=== PATIENT | male | born 1960 | race African-American/Black ===

== ENCOUNTER 2018-04-18 17:11 | Observation (INO) | payer BC, OTHER ==
[2018-04-18 17:27] VITALS: BMI 27.3
[2018-04-18] MEDS ORDERED: MECLIZINE HCL 25 MG TABLET (FP) PO ONE (20:29)
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
[2018-04-18 22:11] LABS: BASO % 0.9 % (0-2.0); EOS % 4.6 % (0-4.5); HEMATOCRIT 42.4 % (35.4-49); HEMOGLOBIN 14.8 GM/dL (11.7-16.9); LYMPH % 18.7 % (8-40); MCH 32.1 pg (25.7-33.7); MCHC 34.8 g/dl (32.0-35.9); MEAN CELL VOLUME 92.3 fl (80-96); MEAN PLT VOLUME 8.7 fl (7.5-11.1); MONO % 8.1 % (3.8-10.2); NEUT % 67.7 % (42.8-82.8); PLATELET COUNT 295 K/MM3 (134-434); RBC 4.59 M/mm3 (4.00-5.60); RDW 13.5 % (11.9-15.9); WHITE BLOOD COUNT 8.5 K/mm3 (4.0-10.0)
[2018-04-18 22:36] LABS: INR 1.1 (0.83-1.09)
[2018-04-18 22:42] LABS: ALBUMIN 3.5 g/dl (3.4-5.0); ALK PHOS 128 U/L (45-117); ANION GAP 6 MMOL/L (8-16); BILIRUBIN,TOTAL 0.2 mg/dL (0.2-1); BLOOD UREA NITROGEN 16 mg/dL (7-18); CALCIUM 8.7 mg/dL (8.5-10.1); CHLORIDE 103 mmol/L (98-107); CO2 28 mmol/L (21-32); CREATININE 0.9 mg/dL (0.55-1.3); GLUCOSE,RANDOM 136 mg/dL (74-106); MAGNESIUM 2.2 mg/dL (1.8-2.4); POTASSIUM 3.8 mmol/L (3.5-5.1); SGOT/AST 19 U/L (15-37); SGPT/ALT 27 U/L (13-61); SODIUM 137 mmol/L (136-145); TOT PROT 6.8 g/dl (6.4-8.2)
[2018-04-18] MEDS ORDERED: MECLIZINE HCL 25 MG TABLET (FP) ONE ×2 (22:46→22:50)
[2018-04-18] MEDS ORDERED: ACETAMINOPHEN 325 MG TABLET (FP) ONE (23:48)
[2018-04-18] MEDS ORDERED: ACETAMINOPHEN 500 MG TABLET (FP) PO ONE (23:48)
[2018-04-19] MEDS ORDERED: MECLIZINE HCL 12.5 MG TABLET PO PRN (00:52)
--- NOTE | 2018-04-19 01:27 | HP ---
CHIEF COMPLAINT: Vertigo PCP: None HISTORY OF PRESENT ILLNESS: 58yo M with only history of CAD s/p PCI x6 who presents today for vertigo. He states that he woke up 2 days prior with vertigo and became increasingly dizzy with movements. Pt reports increasing his fluid intake and taking OTC medications without any pattern of symptom relief. Pt reports the vertigo lasts about 15 minutes will be intermittent throughout the day. Denies any headache, chest pain, neck pain, shortness of breath, palpitations, abdominal pain, n/v/d/ c. Pt was given Meclizine in the ED with minimal relief. Denies any constitutional symptoms or prior illness. Denies sick contacts Recent Travel: PAST MEDICAL HISTORY: CAD s/p PCI PAST SURGICAL HISTORY: PCI Social History: Smoking: Denies Alcohol: Denies Drugs: Denies Allergies No Known Allergies Allergy (Verified 11/05/14 12:59) HOME MEDICATIONS: Home Medications Medication Instructions Recorded Amlodipine Besylate [Norvasc -] 10 mg PO DAILY #15 tablet 11/05/14 Atorvastatin Ca [Lipitor] 40 mg PO HS #15 tablet 11/05/14 Meclizine HCl [Antivert -] 50 mg PO TID #18 tablet 11/05/14 Metoprolol Tartrate 50 mg PO BID #30 tablet 11/05/14 REVIEW OF SYSTEMS As per HPI PHYSICAL EXAMINATION Vital Signs - 24 hr 04/18/18 17:24 Temperature 97.7 F Pulse Rate 81 Respiratory 16 Rate Blood Pressure 138/85 O2 Sat by Pulse 100 Oximetry (%) VS: Orthostatics negative GENERAL: NAD, Awake, alert, and fully oriented HEENT: NC/AT, EOMI, ALESSIO, no nystagmus, sclera anicteric, MMM, no auricular abnormalities NECK: Soft, structurally intact, no JVD, normal ROM LUNGS: CTA bilaterally. No wheezes, and no crackles. No accessory muscle use. HEART: RRR normal S1 and S2 without murmur ABDOMEN: Soft, NT/ND, normoactive bowel sounds, no guarding MUSCULOSKELETAL: No CVA tenderness. EXTREMITIES: 2+ distal pulses, warm, well-perfused. No peripheral edema. NEUROLOGICAL: composite mechanic II-XII intact. Normal speech. Normal gait. Strength 5/5 in all motor talbert. Sensation intact throughout. Babinski downgoing. Reflexes 2/4 in biceps and patellar regions. PSYCHIATRIC: Cooperative. Good eye contact. Appropriate mood and affect. SKIN: Warm, no rashes or lesions noted Laboratory Results - last 24 hr 04/18/18 04/18/18 04/18/18 22:00 22:00 22:00 WBC 8.5 RBC 4.59 Hgb 14.8 Hct 42.4 MCV 92.3 MCH 32.1 MCHC 34.8 RDW 13.5 Plt Count 295 D MPV 8.7 Absolute Neuts (auto) 5.8 Neutrophils % 67.7 D Lymphocytes % 18.7 D Monocytes % 8.1 Eosinophils % 4.6 H Basophils % 0.9 Nucleated RBC % 0 PT with INR 13.00 INR 1.10 H Sodium 137 Potassium 3.8 Chloride 103 Carbon Dioxide 28 Anion Gap 6 L BUN 16 Creatinine 0.9 Creat Clearance w eGFR > 60 Random Glucose 136 H Calcium 8.7 Magnesium 2.2 Total Bilirubin 0.2 AST 19 ALT 27 Alkaline Phosphatase 128 H Creatine Kinase 107 Troponin I < 0.02 Total Protein 6.8 Albumin 3.5 ASSESSMENT/PLAN: Vertigo CAD s/p PCI x6 --[place]-hallpike negative --Improving on Meclizine --Orthostatics negative --ECG w/o abnormality --MRI ordered to r/o any possible central etiology --If w/o acute process can leave in AM --Fall precautions --Echo --Neuro consult --Rpt cardiac profile to increase NPV for ACS FEN: Fluids: Not indicated Electrolytes: WNL Nutrition: Cholesterol/fat controlled PPX: DVT - early ambulation Dispo: Place in observation; likely d/c in AM with tabs of Meclizine Discussed with Dr. Katerine Cooley, DO - IM PGY-2 Visit type - Emergency Visit Emergency Visit: Yes ED Registration Date: 04/19/18 Care time: The patient presented to the Emergency Department on the above date and was hospitalized for further evaluation of their emergent condition. - New Patient This patient is new to me today: Yes Date on this admission: 04/19/18 - Critical Care Critical Care patient: No
--- NOTE | 2018-04-19 03:35 | PN ---
Teaching Attending Note Name of Resident: Juan Cooley ATTENDING PHYSICIAN STATEMENT I saw and evaluated the patient. I reviewed the resident's note and discussed the case with the resident. I agree with the resident's findings and plan as documented. SUBJECTIVE: Patient is a 58-year-old man with past medical history of CAD, and [place] (with 6 stents) who presents to the ER with dizziness for the past 2 days. Patient reports woke up yesterday morning and when he sat up he became increasingly dizzy. He states he increased his fluid intake and tried [id number] medications and remedies without any change in symptoms. Patient reports his dizziness gets worse with any change position notably from sitting up to lying down. Patient states he does have left lateral neck pain but denies any chiropractic or massage therapies. He denies any chest pain, shortness of breath , blurry vision, abdominal pain, nausea, vomiting or diaphoresis. He got a dose of meclizine in the ER and says he felt a little better. OBJECTIVE: Alert and not orthostatic Vital Signs Period Temp Pulse Resp BP Sys/Serrano Pulse Ox Last 24 Hr 97.7 F 81 16 138/85 100 HEENT: No Jaundice, eye redness or discharge, PERRLA, EOMI. Normocephalic, atraumatic. External ears are normal and hearing is grossly intact. No nasal discharge. Neck: Supple, nontender. No palpable adenopathy or thyromegaly. No JVD Chest: Good effort. Clear to auscultation and percussion. Heart: Regular. No S3, rub or murmur Abdomen: Not distended, soft, nontender and no HSM. No rebound or guarding. Normoactive bowel sounds. Ext: Peripheral pulses intact. No leg edema. Skin: Warm and dry. No petechiae, rash or ecchymosis. Neuro: Alert. Oriented x3. CN 2-12 grossly intact. Sensation grossly intact in all four extremities and DTR are symmetric. Current Medications Generic Name Dose Route Start Last Admin Trade Name Freq PRN Reason Stop Dose Admin Amlodipine Besylate 10 mg 04/19/18 10:00 Norvasc - PO DAILY SUSI Atorvastatin Calcium 40 mg 04/19/18 22:00 Lipitor - PO HS SUSI Meclizine HCl 12.5 mg 04/19/18 00:52 Antivert - PO Q6H PRN VERTIGO Metoprolol Tartrate 50 mg 04/19/18 10:00 Lopressor - PO BID SUSI Home Medications Medication Instructions Recorded Amlodipine Besylate [Norvasc -] 10 mg PO DAILY #15 tablet 11/05/14 Atorvastatin Ca [Lipitor] 40 mg PO HS #15 tablet 11/05/14 Meclizine HCl [Antivert -] 50 mg PO TID #18 tablet 11/05/14 Metoprolol Tartrate 50 mg PO BID #30 tablet 11/05/14 Abnormal Lab Results 04/18/18 04/18/18 04/18/18 22:00 22:00 22:00 Eosinophils % 4.6 H INR 1.10 H Anion Gap 6 L Random Glucose 136 H Alkaline Phosphatase 128 H ASSESSMENT AND PLAN: 1. Dizziness - Cause unclear. Will admit to telemetry, implement fall precautions and get carotid doppler, ECHO and brain MRI. Urged to make sure he is well hydrated. Check HbA1c. Consult neurology. 2. DVT prophylaxis - Lovenox 40 mg SQ q 24 hours. 3. Advance directives - Full code
[2018-04-19 03:56] LABS: URINE APPEARANCE CLEAR; URINE BILIRUBIN NEGATIVE (<2.0 mg/dL); URINE COLOR STRAW; URINE GLUCOSE (UA) NEGATIVE (NEGATIVE); URINE KETONE NEGATIVE (NEGATIVE); URINE LEUK ESTERASE NEGATIVE (NEGATIVE); URINE NITRITE NEGATIVE (NEGATIVE); URINE PROTEIN NEGATIVE (NEGATIVE); URINE UROBILINOGEN NEGATIVE mg/dL (0.2-1.0)
--- NOTE | 2018-04-19 10:01 | ECHO ---
Name: NURIS THIBODEAUX Exam:Adult Echocardiogram Study Date: 04/19/2018 07:57 AM Age: 58 yrs Reason For Study: LV Function Height: 67 in Weight: 175 lb BSA: 1.9 m2 MMode/2D Measurements & Calculations IVSd: 0.98 cm Ao root diam: 2.9 cm LVIDd: 3.9 cm LA dimension: 3.3 cm LVIDs: 2.2 cm LVPWd: 1.0 cm EDV(Teich): 66.4 ml LAV (MOD-bp): 37.5 ml ESV(Teich): 16.0 ml Doppler Measurements & Calculations MV E max tal: 87.3 cm/sec TR max tal: 223.5 cm/sec MV A max tal: 97.5 cm/sec TR max P.0 mmHg MV E/A: 0.90 MV dec time: 0.20 sec Med Peak E' Tal: 4.7 cm/sec PI Vmax: 137.1 cm/sec Med E/e': 18.7 Lat Peak E' Tal: 10.2 cm/sec Lat E/e': 8.5 Left Ventricle Left ventricular systolic function is normal. Ejection Fraction = 55-60%. The transmitral spectral Do ppler flow pattern is suggestive of impaired LV relaxation. Right Ventricle The right ventricle is normal in size and function. Atria Normal left and right atrial size and function. Mitral Valve The mitral valve is normal in structure and function. There is no mitral valve stenosis. There is mil d mitral regurgitation. Tricuspid Valve The tricuspid valve is normal in structure and function. There is mild tricuspid regurgitation. Aortic Valve The aortic valve opens well. No hemodynamically significant valvular aortic stenosis. Pulmonic Valve The pulmonic valve is not well seen, but is grossly normal. There is no pulmonic valvular stenosis. M ild pulmonic valvular regurgitation. Great Vessels The aortic root is normal size. Pericardium/Pleura There is no pericardial effusion. Interpretation Summary Left ventricular systolic function is normal. The transmitral spectral Doppler flow pattern is suggestive of impaired LV relaxation. Ejection Fraction = 55-60%. The right ventricle is normal in size and function. There is mild mitral regurgitation. There is mild tricuspid regurgitation. There is no pericardial effusion. MD Obrien *Yusuf 04/19/2018 10:00 AM
[2018-04-19] MEDS: METOPROLOL TARTRATE 50 MG TABLET (FP) PO SCH ×2 (10:04→21:29)
[2018-04-19] MEDS: amLODIPine BESYLATE 10 MG TABLET (FP) PO SCH (10:04)
--- NOTE | 2018-04-19 11:25 | EKG ---
Test Reason : Blood Pressure : / mmHG Vent. Rate : 068 BPM Atrial Rate : 068 BPM P-R Int : 190 ms QRS Dur : 088 ms QT Int : 374 ms P-R-T Axes : 049 000 -10 degrees QTc Int : 397 ms NORMAL SINUS RHYTHM INFERIOR INFARCT (CITED ON OR BEFORE 05-NOV-2014) ABNORMAL ECG WHEN COMPARED WITH ECG OF 05-NOV-2014 16:38, NONSPECIFIC T WAVE ABNORMALITY NOW EVIDENT IN ANTERIOR LEADS Confirmed by JUNO WHITE, RONY ([id number]) on 04/19/2018 11:24:54 AM Referred By: Confirmed By:RONY FRAIRE MD
[2018-04-19] MEDS ORDERED: LORazepam 2 MG/ML SDV VIAL IVPUSH ONE (14:45)
--- NOTE | 2018-04-19 14:59 | PN ---
Teaching Attending Note Name of Resident: Chet Cortez ATTENDING PHYSICIAN STATEMENT I saw and evaluated the patient. I reviewed the resident's note and discussed the case with the resident. I agree with the resident's findings and plan as documented with exceptions below. SUBJECTIVE: patient seen and examined. Symptoms improved. left neck pain, worse with movements. Reports woke up 2 days ago with left neck pain worse with movements associated with spinning sensation. Dizziness/vertigo has improved, however neck symptoms persist. URI like illness 2 weeks ago. OBJECTIVE: Vital Signs Period Temp Pulse Resp BP Sys/Serrano Pulse Ox Last 24 Hr 97.6 F-98.0 F 62-81 16-18 131-140/78-87 97-100 Intake & Output 04/16/18 04/17/18 04/18/18 04/19/18 23:59 23:59 23:59 23:59 Weight 175 lb General; sitting in bed in no acute distress Neck: left neck tenderness along sternomastoid muscle, pain with lateral neck movements. no spinal tenderness Neuro: AAOX3, no nystagmus, finger nose test WNL, power 5/5 sensation intact to light touch, no pronator drift, cranial nerves II-XII intact, gait normal Abdomen:Soft, NT Extremities: no edema Chest: CTAB, no rales or wheezing Home Medications Medication Instructions Recorded Amlodipine Besylate [Norvasc -] 10 mg PO DAILY #15 tablet 11/05/14 Atorvastatin Ca [Lipitor] 40 mg PO HS #15 tablet 11/05/14 Meclizine HCl [Antivert -] 50 mg PO TID #18 tablet 11/05/14 Metoprolol Tartrate 50 mg PO BID #30 tablet 11/05/14 Aspirin 81 mg PO DAILY 04/19/18 Clopidogrel Bisulfate [Plavix] 75 mg PO DAILY 04/19/18 Metoprolol Succinate 25 mg PO DAILY 04/19/18 Active Medications Acetaminophen (Tylenol -) 650 mg PO Q6H PRN PRN Reason: PAIN 1-3 Amlodipine Besylate (Norvasc -) 10 mg PO DAILY SUSI Last Admin: 04/19/18 10:04 Dose: 10 mg Aspirin (Asa -) 81 mg PO DAILY [facility] Atorvastatin Calcium (Lipitor -) 40 mg PO HS [facility] Clopidogrel Bisulfate (Plavix -) 75 mg PO DAILY [facility] Meclizine HCl (Antivert -) 25 mg PO TID [facility] Methyl Salicylate (Adam-Us -) 1 applic TP BID [facility] Metoprolol Tartrate (Lopressor -) 50 mg PO BID [facility] Last Admin: 04/19/18 10:04 Dose: 50 mg Laboratory Results - last 24 hr 04/18/18 04/18/18 04/18/18 22:00 22:00 22:00 WBC 8.5 RBC 4.59 Hgb 14.8 Hct 42.4 MCV 92.3 MCH 32.1 MCHC 34.8 RDW 13.5 Plt Count 295 D MPV 8.7 Absolute Neuts (auto) 5.8 Neutrophils % 67.7 D Lymphocytes % 18.7 D Monocytes % 8.1 Eosinophils % 4.6 H Basophils % 0.9 Nucleated RBC % 0 PT with INR 13.00 INR 1.10 H Sodium 137 Potassium 3.8 Chloride 103 Carbon Dioxide 28 Anion Gap 6 L BUN 16 Creatinine 0.9 Creat Clearance w eGFR > 60 Random Glucose 136 H Calcium 8.7 Magnesium 2.2 Total Bilirubin 0.2 AST 19 ALT 27 Alkaline Phosphatase 128 H Creatine Kinase 107 Troponin I < 0.02 Total Protein 6.8 Albumin 3.5 Urine Color Urine Appearance Urine pH Ur Specific [place] Urine Protein Urine Glucose (UA) Urine Ketones Urine Blood Urine Nitrite Urine Bilirubin Urine Urobilinogen Ur Leukocyte Esterase 04/19/18 04/19/18 00:23 03:05 WBC RBC Hgb Hct MCV MCH MCHC RDW Plt Count MPV Absolute Neuts (auto) Neutrophils % Lymphocytes % Monocytes % Eosinophils % Basophils % Nucleated RBC % PT with INR INR Sodium Potassium Chloride Carbon Dioxide Anion Gap BUN Creatinine Creat Clearance w eGFR Random Glucose Calcium Magnesium Total Bilirubin AST ALT Alkaline Phosphatase Creatine Kinase 90 Troponin I < 0.02 Total Protein Albumin Urine Color Straw Urine Appearance Clear Urine pH 7.0 Ur Specific [place] 1.011 Urine Protein Negative Urine Glucose (UA) Negative Urine Ketones Negative Urine Blood Negative Urine Nitrite Negative Urine Bilirubin Negative Urine Urobilinogen Negative Ur Leukocyte Esterase Negative CT brain/CTA neck noted. 2D echo results reviewed ASSESSMENT AND PLAN: 58 yom with PMHx of CAD s/p PCI x6 admitted with left neck pain and vertigo/ dizziness. -Vertigo/dizziness, suspect BPPV in the setting of recent URI, low suspicion for posterior cerebellar event -Left neck pain, suspect musculoskeletal. CTA neg for vertebral artery dissection -HTN -HLD -CAD s/p PCI x 6 Plan: Place on standng meclizine. CT brain/Neck CTA noted. Bengay/tylenol for left neck pain. Vestibular PT. MRI brain given high risk, and improved but ongoing symptoms. Resume ASA/plavix/Continue statin/metoprolol/amlodipine. DVTPPX if > 24-48 hours hospital stay anticipated D/c in 24 hours if w/u unrevealing and clinically improved. Plan discussed with patient in detail, all questions answered.
[2018-04-19] MEDS ORDERED: CLOPIDOGREL BISULFATE 75 MG TABLET (FP) ONE (15:02)
[2018-04-19] MEDS ORDERED: ASPIRIN 81 MG CHEWABLE TABLETS ONE (15:02)
[2018-04-19] MEDS: CLOPIDOGREL BISULFATE 75 MG TABLET (FP) PO SCH (15:05)
[2018-04-19] MEDS: ASPIRIN 81 MG CHEWABLE TABLETS PO SCH (15:05)
[2018-04-19] MEDS ORDERED: ACETAMINOPHEN 325 MG TABLET (FP) ONE (17:40)
[2018-04-19] MEDS: ACETAMINOPHEN 325 MG TABLET (FP) PO PRN (17:40)
[2018-04-19] MEDS ORDERED: MECLIZINE HCL 25 MG TABLET (FP) ONE (17:42)
[2018-04-19] MEDS: MECLIZINE HCL 25 MG TABLET (FP) PO SCH ×2 (17:43→21:29)
[2018-04-19] MEDS ORDERED: LORazepam 2 MG/ML SDV VIAL ONE (18:08)
--- NOTE | 2018-04-19 19:59 | PN ---
Physical Exam: SUBJECTIVE: Patient seen and examined at bedside this morning. Admits improvement of dizziness, however complains of left sided neck pain with passive and active movement. Unable to provide inciting factors for dizziness, states it occurred as he woke up, getting up from bed Sunday morning. Endorses that he had URI that resolved approx. two weeks ago. Currenly denies, fevers, chills, shortness of breath, OBJECTIVE: Vital Signs Period Temp Pulse Resp BP Sys/Serrano Pulse Ox Last 24 Hr 97.6 F-98.2 F 62-80 17-18 124-140/78-87 97-100 GENERAL: The patient is awake, alert, and fully oriented, in no acute distress. HEAD: Normal with no signs of trauma. Passive and active range of motion limited due to neck pain. EYES: PERRL, extraocular movements intact, sclera anicteric, conjunctiva clear. No ptosis. ENT: Ears normal, nares patent, oropharynx clear without exudates, moist mucous membranes. NECK: Trachea midline, full range of motion, supple. LUNGS: Breath sounds equal, clear to auscultation bilaterally, no wheezes, no crackles, no accessory muscle use. HEART: Regular rate and rhythm, S1, S2 without murmur, rub or gallop. ABDOMEN: Soft, nontender, nondistended, normoactive bowel sounds, no guarding, no rebound, no hepatosplenomegaly, no masses. EXTREMITIES: 2+ pulses, warm, well-perfused, no edema. NEUROLOGICAL: Cranial nerves II through XII grossly intact. Normal speech. Strength 5/5 b/l upper and lower extremities. No gross focal deficits. PSYCH: Normal mood, normal affect. SKIN: Warm, dry, normal turgor, no rashes or lesions noted Laboratory Results - last 24 hr 04/18/18 04/18/18 04/18/18 22:00 22:00 22:00 WBC 8.5 RBC 4.59 Hgb 14.8 Hct 42.4 MCV 92.3 MCH 32.1 MCHC 34.8 RDW 13.5 Plt Count 295 D MPV 8.7 Absolute Neuts (auto) 5.8 Neutrophils % 67.7 D Lymphocytes % 18.7 D Monocytes % 8.1 Eosinophils % 4.6 H Basophils % 0.9 Nucleated RBC % 0 PT with INR 13.00 INR 1.10 H Sodium 137 Potassium 3.8 Chloride 103 Carbon Dioxide 28 Anion Gap 6 L BUN 16 Creatinine 0.9 Creat Clearance w eGFR > 60 Random Glucose 136 H Calcium 8.7 Magnesium 2.2 Total Bilirubin 0.2 AST 19 ALT 27 Alkaline Phosphatase 128 H Creatine Kinase 107 Troponin I < 0.02 Total Protein 6.8 Albumin 3.5 Urine Color Urine Appearance Urine pH Ur Specific [place] Urine Protein Urine Glucose (UA) Urine Ketones Urine Blood Urine Nitrite Urine Bilirubin Urine Urobilinogen Ur Leukocyte Esterase 04/19/18 04/19/18 00:23 03:05 WBC RBC Hgb Hct MCV MCH MCHC RDW Plt Count MPV Absolute Neuts (auto) Neutrophils % Lymphocytes % Monocytes % Eosinophils % Basophils % Nucleated RBC % PT with INR INR Sodium Potassium Chloride Carbon Dioxide Anion Gap BUN Creatinine Creat Clearance w eGFR Random Glucose Calcium Magnesium Total Bilirubin AST ALT Alkaline Phosphatase Creatine Kinase 90 Troponin I < 0.02 Total Protein Albumin Urine Color Straw Urine Appearance Clear Urine pH 7.0 Ur Specific [place] 1.011 Urine Protein Negative Urine Glucose (UA) Negative Urine Ketones Negative Urine Blood Negative Urine Nitrite Negative Urine Bilirubin Negative Urine Urobilinogen Negative Ur Leukocyte Esterase Negative Active Medications Generic Name Dose Route Start Last Admin Trade Name Freq PRN Reason Stop Dose Admin Acetaminophen 650 mg 04/19/18 14:58 04/19/18 17:40 Tylenol - PO 650 mg Q6H PRN Administration PAIN 1-3 Amlodipine Besylate 10 mg 04/19/18 10:00 04/19/18 10:04 Norvasc - PO 10 mg DAILY SUSI Administration Aspirin 81 mg 04/19/18 13:15 04/19/18 15:05 Asa - PO 81 mg DAILY SUSI Administration Atorvastatin Calcium 40 mg 04/19/18 22:00 Lipitor - PO HS SUSI Clopidogrel Bisulfate 75 mg 04/19/18 13:15 04/19/18 15:05 Plavix - PO 75 mg DAILY SUSI Administration Meclizine HCl 25 mg 04/19/18 15:00 04/19/18 17:43 Antivert - PO 25 mg TID SUSI Administration Methyl Salicylate 1 applic 04/19/18 22:00 Adam-Us - TP BID SUSI Metoprolol Tartrate 50 mg 04/19/18 10:00 04/19/18 10:04 Lopressor - PO 50 mg BID SUSI Administration ASSESSMENT/PLAN: Patient is 58 year old male with history of prior MT s/p 6 cardiac stents, hypertension, hyperlipdemia, presenting with complaint of dizziness, and neck pain. Dizziness -May be secondary to BPPV -Meclizine 25mg PO TID -BenGay cream to neck BID -Tylenol 650mg PO Q6H for pain -F/U brain MRI -F/U CTA neck Coronary artery disease -S/P 6 stents -Aspirin 81mg PO daily -Plavix 75mg PO daily Hypertension -Metoprolol 50mg PO BID -Norvasc 10mg PO daily Hyperlipidemia -Lipitor 40mg PO QHS FEN -No IV fluids indicated -follow CMP -Cholesterol fat controlled diet Prophylaxis -Early ambulation Disposition -Likely discharge tomorrow, pending read MRI, CTA neck Visit type - Emergency Visit Emergency Visit: Yes ED Registration Date: 04/19/18 Care time: The patient presented to the Emergency Department on the above date and was hospitalized for further evaluation of their emergent condition. - New Patient This patient is new to me today: Yes Date on this admission: 04/19/18 - Critical Care Critical Care patient: No - Discharge Referral Referred to [facility] Med P.C.: No
[2018-04-19] MEDS ORDERED: PT OWN MED DRAWER 7, Y5N ONE (21:03)
[2018-04-19] MEDS: METHYL SALICYLATE/MENTHOL OINT 30 GM TUBE TP SCH (21:30)
[2018-04-19] MEDS ORDERED: ATORVASTATIN CA 40 MG TABLET (FP) PO SCH (22:00)
[2018-04-20] MEDS: MECLIZINE HCL 25 MG TABLET (FP) PO SCH (06:22)
[2018-04-20 08:01] LABS: HEMATOCRIT 44.3 % (35.4-49); HEMOGLOBIN 14.7 GM/dL (11.7-16.9); MCH 30.9 pg (25.7-33.7); MCHC 33.1 g/dl (32.0-35.9); MEAN CELL VOLUME 93.2 fl (80-96); MEAN PLT VOLUME 8.5 fl (7.5-11.1); PLATELET COUNT 303 K/MM3 (134-434); RBC 4.75 M/mm3 (4.00-5.60); RDW 13.5 % (11.9-15.9); WHITE BLOOD COUNT 7.8 K/mm3 (4.0-10.0)
[2018-04-20 08:45] LABS: ALBUMIN 3.5 g/dl (3.4-5.0); ALK PHOS 133 U/L (45-117); ANION GAP 9 MMOL/L (8-16); BILIRUBIN,TOTAL 0.8 mg/dL (0.2-1); BLOOD UREA NITROGEN 13 mg/dL (7-18); CHLORIDE 102 mmol/L (98-107); CO2 26 mmol/L (21-32); CREATININE 0.9 mg/dL (0.55-1.3); GLUCOSE,RANDOM 81 mg/dL (74-106); POTASSIUM 4.1 mmol/L (3.5-5.1); SGOT/AST 21 U/L (15-37); SGPT/ALT 27 U/L (13-61); SODIUM 138 mmol/L (136-145); TOT PROT 6.9 g/dl (6.4-8.2)
[2018-04-20 09:00] VITALS: BP 154/90; PULSE 67; TEMP 98.7
[2018-04-20] MEDS: ACETAMINOPHEN 325 MG TABLET (FP) PO PRN (09:57)
[2018-04-20] MEDS: METOPROLOL TARTRATE 50 MG TABLET (FP) PO SCH (09:58)
[2018-04-20] MEDS: ASPIRIN 81 MG CHEWABLE TABLETS PO SCH (09:58)
[2018-04-20] MEDS: METHYL SALICYLATE/MENTHOL OINT 30 GM TUBE TP SCH (09:58)
[2018-04-20] MEDS: amLODIPine BESYLATE 10 MG TABLET (FP) PO SCH (09:58)
[2018-04-20] MEDS: CLOPIDOGREL BISULFATE 75 MG TABLET (FP) PO SCH (09:58)
--- NOTE | 2018-04-20 11:32 | PN ---
Teaching Attending Note Name of Resident: Shelbi Ross ATTENDING PHYSICIAN STATEMENT I saw and evaluated the patient. I reviewed the resident's note and discussed the case with the resident. I agree with the resident's findings and plan as documented with exceptions below. SUBJECTIVE: Patient seen and examined. symptoms resolved. neck pain impoved with bengay. No dizziness or vertigo today. OBJECTIVE: Vital Signs Period Temp Pulse Resp BP Sys/Serrano Pulse Ox Last 24 Hr 98.1 F-98.7 F 67-75 18-18 120-154/72-90 99-99 Intake & Output 04/17/18 04/18/18 04/19/18 04/20/18 23:59 23:59 23:59 23:59 Intake Total 620 500 Balance 620 500 Weight 175 lb General: lying in bed in no acute distress Chest: CTAB, no rales or wheezing neuro: AAOX3, no nystagmus, unchanged exam HEENT: ROM neck improved, no sternomastoid tenderness Home Medications Medication Instructions Recorded Amlodipine Besylate [Norvasc -] 10 mg PO DAILY #15 tablet 11/05/14 Aspirin 81 mg PO DAILY 04/19/18 Clopidogrel Bisulfate [Plavix] 75 mg PO DAILY 04/19/18 Atorvastatin Ca [Lipitor] 40 mg PO HS tablet 04/20/18 Meclizine HCl [Antivert -] 25 mg PO TID PRN 10 Days #30 tablet 04/20/18 Methyl Salicylate/Menthol Oint 1 applic TP DAILY PRN #1 tube 04/20/18 [Analgesic [place] -] Metoprolol Succinate 50 mg PO DAILY #30 tab.er.24h 04/20/18 Laboratory Results - last 24 hr 04/20/18 04/20/18 05:50 05:50 WBC 7.8 RBC 4.75 Hgb 14.7 Hct 44.3 MCV 93.2 MCH 30.9 MCHC 33.1 RDW 13.5 Plt Count 303 MPV 8.5 Sodium 138 Potassium 4.1 Chloride 102 Carbon Dioxide 26 Anion Gap 9 BUN 13 Creatinine 0.9 Creat Clearance w eGFR > 60 Random Glucose 81 Calcium 9.0 Total Bilirubin 0.8 AST 21 ALT 27 Alkaline Phosphatase 133 H Total Protein 6.9 Albumin 3.5 MRI brain results reviewed ASSESSMENT AND PLAN: 58 yom with PMHx of CAD s/p PCI x6 admitted with left neck pain and vertigo/ dizziness. -Vertigo/dizziness, suspect BPPV in the setting of recent URI -Left neck pain, suspect musculoskeletal. CTA neg for vertebral artery dissection -HTN -HLD -CAD s/p PCI x 6 Plan: Improved. MRI brain neg for new concerns. Toprol XL increased. Counseled on need for good BP control. Meclizine prn. Outpatient PT for vertigo/neck pain if symptoms fail to improve. Continue ASA/plavix/Continue statin/amlodipine. D/c home today with outpatient PCP and neurology follow up. Plan discussed with patient and nursing in detail, all questions answered.
--- NOTE | 2018-04-20 13:05 | DS ---
Physical Exam: SUBJECTIVE: Patient seen and examined. Offers no complaints. No acute events overnight. Patient says his dizziness improved. Denies lightheadedness, sob, chest pain. OBJECTIVE: Vital Signs Period Temp Pulse Resp BP Sys/Serrano Pulse Ox Last 24 Hr 98.1 F-98.7 F 67-75 18-18 120-154/72-90 99-99 PHYSICAL EXAM GENERAL: The patient is awake, alert, and fully oriented, in no acute distress. EYES: PERRL, extraocular movements intact, no nystagmus, conjunctiva clear. ENT: oropharynx clear without exudates, moist mucous membranes. NECK:supple. LUNGS: Breath sounds equal, clear to auscultation bilaterally, no wheezes HEART: Regular rate and rhythm, S1, S2 without murmur, rub or gallop. ABDOMEN: Soft, nontender, nondistended, normoactive bowel sounds EXTREMITIES: 2+ pulses, warm, well-perfused, no edema. NEUROLOGICAL: Cranial nerves II through XII grossly intact. Normal speech, gait not observed. LABS Laboratory Results - last 24 hr 04/20/18 04/20/18 05:50 05:50 WBC 7.8 RBC 4.75 Hgb 14.7 Hct 44.3 MCV 93.2 MCH 30.9 MCHC 33.1 RDW 13.5 Plt Count 303 MPV 8.5 Sodium 138 Potassium 4.1 Chloride 102 Carbon Dioxide 26 Anion Gap 9 BUN 13 Creatinine 0.9 Creat Clearance w eGFR > 60 Random Glucose 81 Calcium 9.0 Total Bilirubin 0.8 AST 21 ALT 27 Alkaline Phosphatase 133 H Total Protein 6.9 Albumin 3.5 HOSPITAL COURSE: Date of Admission:04/19/18 58 yom with PMHx of CAD s/p PCI x6 admitted with left neck pain and vertigo/ dizziness. Patient was started on Meclizine, with resolution of symptoms. Patient was given Bengay for the neck pain which relieved the pain. HEAD CT: No evidence of acute intracranial hemorrhage, edema, midline shift, mass effect, or skull fracture. No CT evidence of acute territorial ischemic changes. 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 No evidence acute infarct. No evidence of intracerebral hemorrhage, subdural fluid collection or hydrocephalus. Cerebellopontine angles unremarkable with no evidence of intra or extra canalicular acoustic schwannoma. The cochlear structures are symmetric unremarkable. No evidence of basilar artery stenosis, dissection or occlusion. NECK CTA: Moderate size mainly soft plaque with calcifications in the right bulb , without evidence of hemodynamically significant stenosis. Tiny plaque at the origin of the left internal carotid artery without evidence of hemodynamically significant stenosis. Hypoplastic left A1 segment. Otherwise, the intracranial bifurcation of both internal carotid arteries appear unremarkable. There is normal flow in both A2 segments. An anterior communicating artery is present. Both vertebral arteries appear unremarkable without evidence of stenosis. Coronary artery disease -S/P 6 stents -Aspirin 81mg PO daily -Plavix 75mg PO daily Hypertension -Metoprolol 50mg Daily -Norvasc 10mg PO daily Hyperlipidemia -Lipitor 40mg PO QHS Date of Discharge: 04/20/18 Minutes to complete discharge: 35 Discharge Summary Reason For Visit: VERTIGO Current Active Problems Vertigo (Acute) Condition: Improved - Instructions Diet, Activity, Other Instructions: You were admitted because of vertigo and neck pain. We have made some changes to your medications. Please take as directed. Your MRI brain showed old small strokes likely from high blood pressure and cholesterol. MEDICATION CHANGES: You Toprol XL has been increased to 50 mg daily. Please take as directed. Take Meclizine as needed for dizziness. Continue other medications as before. Please note that it is very important that you monitor your BP and closely follow with your doctor to keep it under control. Recommend home BP monitoring and notify your doctor if SBP (upper BP) < 100 or persistently > 140 or any dizziness noted. ACTIVITY: As tolerated. Maintain adequate hydration. If your symptoms recur, you are advised outpatient ENT follow up and discussion with your doctor for outpatient vestibular physical therapy. Please discuss with your doctor for outpatient physical therapy for vertigo and neck pain if symptoms recur or fail to resolve. Follow up with your primary care physician in 1 week. You will also need to follow up with an ENT doctor. It is possible that you will need Vestibular therapy. It is also recommended to follow up with Neurology for follow up. If you have worsening dizziness, please call your doctor. If it is an emergency , go to your nearest emergency room. Referrals: Bam Johnson MD [Staff Physician] - 1 Week Indra Sanchez MD [Staff Physician] - Juan Stallings MD [Staff Physician] - Disposition: HOME - Home Medications Comprehensive Discharge Medication List: Ambulatory Orders Amlodipine Besylate [Norvasc -] 10 mg PO DAILY #15 tablet 11/05/14 Aspirin 81 mg PO DAILY 04/19/18 Clopidogrel Bisulfate [Plavix] 75 mg PO DAILY 04/19/18 Atorvastatin Ca [Lipitor] 40 mg PO HS tablet 04/20/18 Meclizine HCl [Antivert -] 25 mg PO TID PRN 10 Days #30 tablet 04/20/18 Methyl Salicylate/Menthol Oint [Analgesic [place] -] 1 applic TP DAILY PRN #1 tube 04/20/18 Metoprolol Succinate 50 mg PO DAILY #30 tab.er.24h 04/20/18 This patient is new to me today: Yes Date on this admission: 04/21/18 Emergency Visit: Yes ED Registration Date: 04/19/18 Care time: The patient presented to the Emergency Department on the above date and was hospitalized for further evaluation of their emergent condition. Critical Care patient: No - Discharge Referral Referred to [facility] Med P.C.: No
== END 2018-04-20 13:54 | disposition home or self-care (01) ==
LOC: JER 17:11 → JERBED 04-19 00:57 → J4W 04-19 19:18
PROVIDERS: ADMIT Internal Medicine; ATTEND Hospitalist
PROC: 3E033NZ Introduction of Analgesics, Hypnotics, Sedatives into Peripheral Vein, Percutaneous Approach (ICD-10-PCS; principal; 2018-04-19)
DX: R42 Dizziness and giddiness (principal); M54.2 Cervicalgia; I10 Essential (primary) hypertension; I25.10 Atherosclerotic heart disease of native coronary artery without angina pectoris; I25.2 Old myocardial infarction; E78.5 Hyperlipidemia, unspecified; Z95.5 Presence of coronary angioplasty implant and graft
CPT/HCPCS: 36415; 70450-TC; 70498-TC; 70551-TC; 71046-TC-FY; 80053; 81003; 82550; 83735; 84484; 85025; 85027; 85610; 93005; 93010; 93306-TC; 99285-25; G0378

== ENCOUNTER 2022-08-28 19:03 | Emergency (ER) | payer BC, OTHER ==
[2022-08-28 19:33] VITALS: TEMP 98.3; BMI 26.3
[2022-08-29 02:28] VITALS: BP 145/71; PULSE 62; RESP 18
== END 2022-08-29 02:29 | disposition home or self-care (01) ==
LOC: JER 19:03 → JERFT 19:03 → JER 08-29 02:29
DX: M25.511 Pain in right shoulder (principal)
CPT/HCPCS: 73030-TC-RT-FY; 93005; 93010; 99284-25